=== PATIENT | male | born 1970 | race Hispanic/Latino ===

== ENCOUNTER 2018-07-23 15:45 | Outpatient (CLI) | payer BC ==
--- NOTE | 2018-07-23 16:44 | MRI ---
MR OF THE RIGHT KNEE WITHOUT CONTRAST INDICATION: Medial right knee pain for one month TECHNIQUE: Axial and coronal PD fat sat, sagittal T2 fat sat, sagittal PD turbo spin echo and T1 hi nal images were obtained of the right knee. COMPARISON: None. FINDINGS: Joint effusion: None. Semimembranosus-medial gastrocnemius popliteal cyst: None. Ligaments: The ACL, PCL, MCL and LCLC are intact. Extensor mechanism: Intact. Menisci: There is a horizontally oriented tear involving the body and posterior horn of the medial me niscus. The lateral meniscus is partially discoid but intact. Articular cartilage: There is mild chondrosis involving the surface of the median patellar ridge and medial patellar facet. No full-thickness defect is evident. There is niyc-[id number] diffuse chondral thinning involving the medial tibial joint compartment. There is a near full-thickness fissu re involving the medial femoral condyle on image 17 of series 6 measuring 2.7 mm in its greatest mediolateral dimensions. Osseous structures: Normal marrow signal. Popliteus and IT band: Normal. IMPRESSION: 1. Medial meniscal tear. 2. Mild diffuse chondrosis involving the medial femorotibial and patellofemoral compartments.
== END 2018-07-23 15:46 | disposition home or self-care (01) ==
LOC: SCSMRI 15:45
PROVIDERS: ATTEND Orthopaedic Surgery
DX: M23.91 Unspecified internal derangement of right knee (principal); S83.241A Other tear of medial meniscus, current injury, right knee, initial encounter

== ENCOUNTER 2018-09-09 07:00 | Day surgery (SDC) | payer BC ==
--- NOTE | 2018-09-08 09:43 | HP ---
HISTORY OF PRESENT ILLNESS: The patient is a 47-year-old male with several month history of right knee pain, which is worse with ambulation. No specific injury. He has had progressive symptoms despite rest, restriction of activities, and use of anti-inflammatory medications. The pain is now interfering with day-to-day activities. PAST HISTORY: The patient has history of diabetes and hypertension, and previous kidney stones. CURRENT MEDICATIONS: Include, 1. Losartan. 2. Glipizide. 3. Metformin. ALLERGIES: HE HAS NO KNOWN ALLERGIES. FAMILY HISTORY: Otherwise unremarkable. SOCIAL HISTORY: Otherwise unremarkable. REVIEW OF SYSTEMS: Otherwise unremarkable. PHYSICAL EXAMINATION: GENERAL: Reveals a healthy male. HEENT: Unremarkable. NECK: Supple. CHEST: Clear. HEART: Regular rate and rhythm. ABDOMEN: Soft, nontender. RECTAL: Deferred. GENITAL: Deferred. EXTREMITIES: Pertinent findings of the right knee, there is no effusion. There is normal alignment. There is tenderness over the medial joint line. There is virtual full range of motion. There is pain with Melchor's maneuver. NEUROVASCULAR: Exam is intact with palpable distal pulses. There is a slight right antalgic gait. IMAGING STUDIES: MRI scan of the right knee reveals a medial meniscal tear and mild degenerative changes. IMPRESSION: Internal derangement of right knee with medial meniscal tear, possible component of degenerative joint disease. PLAN: Arthroscopy of right knee with partial medial meniscectomy and/or debridement and shaving. The nature of the surgery, length, recovery, and potential complications such as infection, loss of motion, incomplete relief, neurovascular injury, thromboembolic phenomenon, posttraumatic degenerative arthritis, recurrent tear, and need for additional treatment or repeat surgery have been discussed in detail. Job ID: [id number]
[2018-09-08 10:12] VITALS: BMI 30.5
[2018-09-09 08:08] LABS: #Eosinphils 0.2 thou/uL (0.0-0.7); #Lymphocytes 1.8 thou/uL (1.20-3.40); #Monocytes 0.5 thou/uL (0.11-0.59); #Neutrophils 3.8 thou/uL (1.40-6.50); %Basophils 0.3 % (0.0-1.0); %Eosinophils 3.2 % (0.0-10.0); %Lymphocytes 28.4 % (21.0-51.0); %Monocytes 7.3 % (0.0-10.0); %Neutrophils 60.8 % (42.0-75.0); Hemoglobin 13.7 g/dL (14.0-18.0); Mean Corpuscular HGB CONC 32.8 g/dL (32.0-36.0); Mean Corpuscular Hemoglobin 29.2 pg (27.0-31.0); Mean Platelet Volume 7.7 fL (7.4-10.4); Platelet Count 207 thou/uL (130-400); RBC Distribution Width 11.7 % (11.5-14.5); Red Blood Cell (RBC) Count 4.69 mill/uL (4.70-6.10); White Blood Cell (WBC) Count 6.2 thou/uL (4.8-10.8)
[2018-09-09 08:29] LABS: Anion Gap 12 mmol/L (10-20); BUN (Urea Nitrogen) 16 mg/dL (8.9-20.6); Calc. Creatinine Clearance 105 mL/min (70-130); Calcium 10.1 mg/dL (7.8-10.44); Carbon Dioxide 28 mmol/L (22-29); Chloride 99 mmol/L (98-107); Estimated GFR-MDRD 86; Glucose 147 mg/dL (70-105); Potassium 4.5 mmol/L (3.5-5.1); Sodium 134 mmol/L (136-145)
[2018-09-09] MEDS ORDERED: Bupivacaine HCl 0.5%/Epinephrine 1:200,000/PF 30 ml Vial ONE (09:10)
[2018-09-09] MEDS ORDERED: Fentanyl 100 MCG/2 ML VIAL ONE ×2 (09:31→10:39)
[2018-09-09] MEDS ORDERED: Lidocaine 1% PF 5 ML VIAL ONE (11:46)
[2018-09-09] MEDS ORDERED: Ondansetron PF 4 MG/2 ML Vial ONE (11:46)
[2018-09-09] MEDS ORDERED: PROPOFOL 200 MG/20 ML VIAL ONE (11:46)
[2018-09-09] MEDS ORDERED: Ketorolac Tromethamine 30 MG/ML VIAL ONE (11:46)
--- NOTE | 2018-09-09 12:09 | OP ---
DATE OF PROCEDURE: 09/09/2018 ANESTHESIA: General. PREOPERATIVE DIAGNOSIS: Medial meniscal tear and degenerative joint disease, right knee. POSTOPERATIVE DIAGNOSIS: Medial meniscal tear and degenerative joint disease, right knee. PROCEDURE PERFORMED: Arthroscopy of right knee with partial medial meniscectomy. OPERATIVE FINDINGS: Examination of anesthesia revealed the knee to be stable. On arthroscopy, there was grade 2 and early grade 3 chondromalacia of the patella primarily centrally. No areas of exposed bone. Mild fibrillation of the surface. On examination, the medial compartment revealed a complex tear of the medial meniscus with a horizontal flap component from the inferior surface of the meniscus. There were grade 2 and early grade 3 changes of the medial femoral condyle. ACL was intact. Lateral meniscus and lateral compartment were normal. DESCRIPTION OF PROCEDURE: After satisfactory anesthesia was induced in supine position, the patient was placed in a leg soto and prepped and draped in routine manner. The right leg was elevated and exsanguinated with an Esmarch bandage, and the tourniquet inflated to 250 mmHg. [place] arthroscope was introduced through anterolateral portal, probed through the anteromedial portal, and inflow and outflow accomplished through the scope using a Layer3 TV arthroscopy pump. Arthroscopy was carried out, and the above findings were noted. All findings were documented with the video printer and hard copies were made. The posterior horn of the medial meniscus was debrided with use of motorized shaver and basket forceps. The rim was saucerized and probed and found to be stable. There was still an intact rim of at least 4 mm. The small amount of the medial femoral condyle surface and the patellar surface was debrided with a motorized shaver. The scope was introduced into the anterior medial portal. All compartments were visualized. No additional pathology found. The knee was then copiously irrigated through the scope, and all instruments were withdrawn. 20 mL of 0.5% Marcaine with epinephrine was instilled into the knee joint, and additional 10 mL injected about the portal sites. Portal sites were closed with 3-0 nylon, and a sterile bulky compressive dressing was applied. The tourniquet deflated after 17 minutes. The foot promptly pinked up. The patient was awakened, taken to recovery room in stable condition. There were no apparent intraoperative complications. The estimated blood loss was negligible. The patient will be discharged home in satisfactory condition, instructed to ice and elevation, use of crutches, home exercise program by the Physical Therapy Department. He was given wound care instructions and prescription for [place] 5 for pain, 24 tablets. He will be rechecked in my office in approximately 2 weeks or sooner if there are any problems prior to that time. Job ID: [id number]
--- NOTE | 2018-09-09 12:20 | EKG ---
Test Reason : PREOP Blood Pressure : / mmHG Vent. Rate : 070 BPM Atrial Rate : 070 BPM P-R Int : 154 ms QRS Dur : 088 ms QT Int : 392 ms P-R-T Axes : 024 053 032 degrees QTc Int : 423 ms Normal sinus rhythm Normal ECG When compared with ECG of 05-APR-2013 21:02, No significant change was found Confirmed by DR. Daniel TANNER ([id number]) on 09/09/2018 12:20:01 PM Referred By: NICOLÁS Confirmed By:DR. Daniel TANNER
== END 2018-09-09 12:15 | disposition home or self-care (01) ==
LOC: SDC 07:00
PROVIDERS: ATTEND Orthopaedic Surgery
PROC: 0SBC4ZZ Excision of Right Knee Joint, Percutaneous Endoscopic Approach (ICD-10-PCS; principal; 2018-09-09)
DX: S83.241A Other tear of medial meniscus, current injury, right knee, initial encounter (principal); M17.11 Unilateral primary osteoarthritis, right knee; I10 Essential (primary) hypertension; E11.9 Type 2 diabetes mellitus without complications; Z79.84 Long term (current) use of oral hypoglycemic drugs; Z79.899 Other long term (current) drug therapy
CPT/HCPCS: 36415; 80048; 85025; 93005; 93010; J0670; J0690; J1885; J2001; J2405; J2704; J3010